=== PATIENT | female | born 1935 | race Caucasian/White ===

== ENCOUNTER 2019-01-22 06:05 | Emergency (ER) | payer MEDICARE, BC ==
[2019-01-22 06:16] VITALS: RESP 18
[2019-01-22] MEDS ORDERED: INDOMETHACIN 25 MG CAP PO STA (07:09)
--- NOTE | 2019-01-22 07:11 | ED ---
General Adult HPI - General Chief complaint: Extremity Problem,Nontraumatic Stated complaint: leg pain Time Seen by Provider: 01/22/19 07:00 Source: patient, family Mode of arrival: wheelchair Limitations: no limitations - History of Present Illness Initial comments: Dictation was produced using [employer] dictation software. please excuse any grammatical, word or spelling errors. Chief Complaint: 83-year-old female with past medical history of hypertension presents with left metatarsal pain. History of Present Illness: 83-year-old female she presents today with left metatarsal pain. Patient's past medical history of hypertension. Yesterday patient noted that she was having significant warmth redness and pain to the left metatarsal. It began acutely yesterday. Patient states that pain is severe especially when she walks. Patient was concerned that she has gout. Patient belongs to alcohol clubs and drinks alcohol frequently. She denies ever having had symptoms like this before. Patient denies any constitutional symptoms. She reports not eating seafood or red meats very often. She tried to make an appointment with her primary care physician or was unable to do so. The ROS documented in this emergency department record has been reviewed and confirmed by me. Those systems with pertinent positive or negative responses have been documented in the HPI. All other systems are other negative and/or no ncontributory. PHYSICAL EXAM: General Impression: Alert and oriented x3, not in acute distress HEENT: Normocephalic atraumatic, extra-ocular movements intact, pupils equal and reactive to light bilaterally, mucous membranes moist. Cardiovascular: Heart regular rate and rhythm, S1&S2 audible, no murmurs, rubs or gallops Chest: Lungs clear to auscultation bilaterally, no rhonchi, no wheeze, no rales Abdomen: Bowel sounds present, abdomen soft, non-tender, non-distended, no organomegaly Musculoskeletal: Pulses present and equal in all extremities, no peripheral edema Motor: no focal deficits noted Neurological: CN II-XII grossly intact, no focal motor or sensory deficits noted Skin: Intact with no visualized rashes Psych: Normal affect and mood Left foot: Redness and warmth and erythema to the left MTP joint ED course: 83-year-old female clinical presentation consistent with gout. Vital signs upon arrival shows blood pressure 187/85, rest of vital signs within acceptable limits. Patient given indomethacin. At this point there is no concern for infectious cause at this time given that no skin injuries. Patient is well-appearing denies any constitutional symptoms. Patient is counseled on precipitants to gouty arthritis. laboratory evaluation was ordered by previous physician Dr. Claros.Laboratory evaluation shows CBC without any abnormalities. Metabolic panel shows an is within acceptable limits. CRP is elevated 19.8. Patient is notified of these results. She is told to follow-up with her primary care physician regarding elevated CRP. Patient is told that her symptoms may reflect an acute infectious process though highly unlikely. She is understandable and agreeable to plan disposition. Patient given prescription for indomethacin. - Related Data Home Medications Medication Instructions Recorded Confirmed ALPRAZolam 0.25 mg PO TID PRN 03/03/15 01/22/19 Levothyroxine Sodium [Synthroid] 75 mcg PO QAM 03/03/15 01/22/19 Temazepam 15 mg PO HS PRN 03/03/15 01/22/19 Aspirin EC [Ecotrin] 162.5 mg PO DAILY PRN 01/22/19 01/22/19 Atorvastatin [Lipitor] 10 mg PO HS 01/22/19 01/22/19 Brimonidine Tartrate/Timolol 1 drop BOTH EYES BID 01/22/19 01/22/19 [Combigan 0.2%-0.5% Eye Drops] Enalapril [Vasotec] 5 mg PO DAILY 01/22/19 01/22/19 Fluticasone Nasal [place] [Flonase 1 spr EA NOSTRIL DAILY 01/22/19 01/22/19 Nasal [place]] Previous Rx's Medication Instructions Recorded Indomethacin [Indocin] 50 mg PO TID 5 Days #15 capsule 01/22/19 Allergies Allergy/AdvReac Type Severity Reaction Status Date / Time Penicillins Allergy Unknown Verified 01/22/19 07:06 Childhood sulfamethoxazole Allergy Nausea Verified 01/22/19 07:06 [From [facility]ra] trimethoprim [From Marra] Allergy Nausea Verified 01/22/19 07:06 Review of Systems ROS Statement: Those systems with pertinent positive or pertinent negative responses have been documented in the HPI. ROS Other: All systems not noted in ROS Statement are negative. Past Medical History History of Any Multi-Drug Resistant Organisms: None Reported Additional Past Surgical History / Comment(s): 03-04-15 ORIF LT WRIST BILATERAL BLEPHROPLASY. BREAST BX-NEG. Past Psychological History: Anxiety, Depression Smoking Status: Former smoker Past Alcohol Use History: Occasional Past Drug Use History: None Reported General Exam Limitations: no limitations Course Vital Signs 01/22/19 06:09 Temperature 97.5 F L Pulse Rate 95 Respiratory 18 Rate Blood Pressure 187/85 O2 Sat by Pulse 96 Oximetry Medical Decision Making - Lab Data Result diagrams: 01/22/19 07:00 01/22/19 07:00 Lab Results 01/22/19 01/22/19 Range/Units 07:00 07:00 WBC 9.2 (3.8-10.6) k/uL RBC 3.89 (3.80-5.40) m/uL Hgb 11.6 (11.4-16.0) gm/dL Hct 34.6 (34.0-46.0) % MCV 89.0 (80.0-100.0) fL MCH 29.8 (25.0-35.0) pg MCHC 33.5 (31.0-37.0) g/dL RDW 12.7 (11.5-15.5) % Plt Count 201 (150-450) k/uL Neutrophils % 69 % Lymphocytes % 22 % Monocytes % 5 % Eosinophils % 2 % Basophils % 0 % Neutrophils # 6.3 (1.3-7.7) k/uL Lymphocytes # 2.0 (1.0-4.8) k/uL Monocytes # 0.4 (0-1.0) k/uL Eosinophils # 0.2 (0-0.7) k/uL Basophils # 0.0 (0-0.2) k/uL Sodium 142 (137-145) mmol/L Potassium 4.1 (3.5-5.1) mmol/L Chloride 108 H (98-107) mmol/L Carbon Dioxide 25 (22-30) mmol/L Anion Gap 9 mmol/L BUN 18 H (7-17) mg/dL Creatinine 0.81 (0.52-1.04) mg/dL Est GFR (CKD-EPI)AfAm 79 (>60 ml/min/1.73 sqM) Est GFR (CKD-EPI)NonAf 69 (>60 ml/min/1.73 sqM) Glucose 102 H (74-99) mg/dL Uric Acid 7.2 (3.7-7.4) mg/dL Calcium 9.2 (8.4-10.2) mg/dL Total Bilirubin 0.7 (0.2-1.3) mg/dL AST 26 (14-36) U/L ALT 17 (9-52) U/L Alkaline Phosphatase 135 H (38-126) U/L C-Reactive Protein 19.8 H (<10.0) mg/L Total Protein 7.0 (6.3-8.2) g/dL Albumin 4.1 (3.5-5.0) g/dL Disposition Clinical Impression: Joint pain Disposition: HOME SELF-CARE Condition: Good Instructions (If sedation given, give patient instructions): Gout (ED) Prescriptions: Indomethacin [Indocin] 50 mg PO TID 5 Days #15 capsule Is patient prescribed a controlled substance at d/c from ED?: No Referrals: Donnie Szymanski MD [Primary Care Provider] - 1-2 days Time of Disposition: 07:29
[2019-01-22 07:14] LABS: Basophils % (A) 0 %; Eosinophils # (A) 0.2 k/uL (0-0.7); Eosinophils % (A) 2 %; HCT 34.6 % (34.0-46.0); HGB 11.6 gm/dL (11.4-16.0); Lymphocytes % (A) 22 %; MCH 29.8 pg (25.0-35.0); MCHC 33.5 g/dL (31.0-37.0); Mean Platelet Volume 7.4; Monocytes # (A) 0.4 k/uL (0-1.0); Monocytes % (A) 5 %; Neutrophils # (A) 6.3 k/uL (1.3-7.7); Neutrophils % (A) 69 %; Platelet Count 201 k/uL (150-450); RBC 3.89 m/uL (3.80-5.40); RDW 12.7 % (11.5-15.5); WBC 9.2 k/uL (3.8-10.6)
[2019-01-22 07:21] LABS: Albumin 4.1 g/dL (3.5-5.0); C Reactive Protein 19.8 mg/L (<10.0); Calcium 9.2 mg/dL (8.4-10.2); Potassium 4.1 mmol/L (3.5-5.1); Total Bilirubin 0.7 mg/dL (0.2-1.3); Uric Acid 7.2 mg/dL (3.7-7.4)
[2019-01-22 08:18] VITALS: BP 161/83; PULSE 82; TEMP 97.2
== END 2019-01-22 08:15 | disposition home or self-care (01) ==
LOC: EC 06:05
DX: M25.572 Pain in left ankle and joints of left foot (principal); R79.82 Elevated C-reactive protein (CRP); I10 Essential (primary) hypertension; Z87.891 Personal history of nicotine dependence; Z98.890 Other specified postprocedural states; Z79.82 Long term (current) use of aspirin; Z79.890 Hormone replacement therapy; Z79.899 Other long term (current) drug therapy; Z88.0 Allergy status to penicillin; Z88.1 Allergy status to other antibiotic agents; Z88.2 Allergy status to sulfonamides
CPT/HCPCS: 36415; 80053; 84550; 85025; 86140; 99283

== ENCOUNTER → 2019-08-28 | Outpatient (CLI) | payer MEDICARE, BC ==
[2019-08-28 16:01] LABS: Basophils % (A) 1 %; Eosinophils # (A) 0.2 k/uL (0-0.7); Eosinophils % (A) 3 %; HCT 36.8 % (34.0-46.0); HGB 11.9 gm/dL (11.4-16.0); Lymphocytes # (A) 3.1 k/uL (1.0-4.8); Lymphocytes % (A) 40 %; MCH 28.9 pg (25.0-35.0); MCHC 32.3 g/dL (31.0-37.0); MCV 89.6 fL (80.0-100.0); Mean Platelet Volume 8.1; Monocytes # (A) 0.3 k/uL (0-1.0); Monocytes % (A) 4 %; Neutrophils # (A) 3.9 k/uL (1.3-7.7); Neutrophils % (A) 50 %; Platelet Count 250 k/uL (150-450); RBC 4.11 m/uL (3.80-5.40); RDW 12.3 % (11.5-15.5); WBC 7.7 k/uL (3.8-10.6)
[2019-08-28 16:45] LABS: Erythrocyte Sedimentation Rate 13 mm/hr (0-20)
[2019-08-29 01:54] LABS: C Reactive Protein <0.4 mg/dL (0.0-0.8)
[2019-08-29 04:21] LABS: Toxoplasma Antibody (IgG) <3.0 IU/mL (<7.2); Toxoplasma Antibody (IgM) <3.0 AU/mL (<8.0)
[2019-08-29 06:34] LABS: Anti-DNA, DS unit <1.0 IU/mL; Anti-Smith Ab Interp NEGATIVE (NEGATIVE); DNA Double-Stranded NEGATIVE (NEGATIVE)
[2019-08-29 09:18] LABS: Angiotensin-1 Converting Enz. 8 U/L (8-52)
[2019-08-29 11:19] LABS: HLA B27 NEGATIVE
[2019-08-29 13:52] LABS: Smooth Muscle Antibody 76 UNITS (<20)
[2019-09-04 16:37] LABS: Lysozyme, Serum or Body Fluid 7.9 mcg/mL (5.0-11.0)
== END | disposition home or self-care (01) ==
LOC: LABWHC1 15:02
PROVIDERS: ATTEND Ophthalmology
DX: H20.019 Primary iridocyclitis, unspecified eye (principal); H46.9 Unspecified optic neuritis
CPT/HCPCS: 36415; 82164; 83516; 85025; 85549; 85652; 86038; 86140; 86225; 86235; 86480; 86618; 86777; 86778; 86780; 86812

== ENCOUNTER → 2023-04-20 | Outpatient (CLI) | payer MEDICARE, BC ==
--- NOTE | 2023-04-20 09:35 | US ---
EXAMINATION TYPE: US liver DATE OF EXAM: 04/20/2023 COMPARISON: NONE CLINICAL INDICATION: Female, 87 years old with history of R94.5 ABNORMAL LIVER FUNCTION STUDIES; TECHNIQUE: Multiple sonographic images of the right upper quadrant are obtained. FINDINGS: EXAM MEASUREMENTS: Liver Length: 13.8 cm Gallbladder Wall: 0.16 cm Right Kidney: 8.0 x 3.3 x 3.5 cm TREASURY MANAGER NOTES: Pancreas: Tail obscured by overlying bowel gas Liver: wnl Gallbladder: Echogenic foci with shadowing measuring 0.75 cm Evidence for sonographic Barreto's sign: no Right Kidney: Small, cystic area measuring 0.5 x 0.5 x 0.4 cm IMPRESSION: Uncomplicated cholelithiasis.
== END | disposition home or self-care (01) ==
LOC: RADUSWWP 08:45
PROVIDERS: ATTEND Internal Medicine
DX: K80.20 Calculus of gallbladder without cholecystitis without obstruction (principal); R94.5 Abnormal results of liver function studies
CPT/HCPCS: 76705

== ENCOUNTER → 2023-11-15 | Outpatient (CLI) | payer MEDICARE, BC ==
[2023-11-15 18:51] LABS: Basophils # (A) 0.08 X 10*3/uL (0.00-0.10); Basophils % (A) 1.5 %; Eosinophils # (A) 0.13 X 10*3/uL (0.04-0.35); Eosinophils % (A) 2.5 %; HCT 33.5 % (37.2-46.3); HGB 10.9 g/dL (12.0-15.0); Lymphocytes # (A) 2.55 X 10*3/uL (0.90-5.00); Lymphocytes % (A) 48.7 %; MCH 30.4 pg (27.0-32.0); MCHC 32.5 g/dL (32.0-37.0); MCV 93.6 FL (80.0-97.0); Mean Platelet Volume 11.7 FL (9.5-12.2); Monocytes # (A) 0.54 X 10*3/uL (0.20-1.00); Monocytes % (A) 10.3 %; NRBC Per 100 WBC 0 X 10*3/uL (0.00-0.01); Neutrophils # (A) 1.93 X 10*3/uL (1.80-7.70); Neutrophils % (A) 36.8 %; Platelet Count 195 X 10*3/uL (140-440); RBC 3.58 X 10*6/uL (4.10-5.20); RDW 12.4 % (11.5-14.5); WBC 5.24 X 10*3/uL (4.50-10.00)
[2023-11-15 19:32] LABS: % Iron Saturation 44.93 (12.00-45.00); ALT 88 U/L (8-44); AST 55 U/L (13-35); Albumin 4.3 g/dL (3.8-4.9); Albumin/Globulin Ratio 2.15 Ratio (1.60-3.17); Alkaline Phosphatase 309 U/L (41-126); BUN/Creat Ratio 18.62 Ratio (12.00-20.00); Blood Urea Nitrogen 14.9 mg/dL (9.0-27.0); Calcium 9.3 mg/dL (8.7-10.3); Carbon Dioxide 21.9 mmol/L (21.6-31.8); Chloride 103 mmol/L (96-109); Glucose 98 mg/dL (70-110); Iron 124 UG/DL (50-170); Potassium 4.5 mmol/L (3.5-5.5); Sodium 138 mmol/L (135-145); Total Bilirubin 0.5 mg/dL (0.3-1.2); Total Iron Binding Capacity 276 UG/DL (228-460); Total Protein 6.3 g/dL (6.2-8.2)
[2023-11-15 21:41] LABS: Protein, Total 6.4 g/dL (6.2-8.2)
[2023-11-15 22:57] LABS: Ceruloplasmin 26.1 mg/dL (20.0-60.0)
[2023-11-16 17:18] LABS: Albumin 4.03 g/dL (3.80-4.90); Gamma Globulin 0.74 g/dL (0.70-1.50)
== END | disposition home or self-care (01) ==
LOC: LABWHC1 12:19
PROVIDERS: ATTEND Internal Medicine Gastroenterology
DX: R74.01 Elevation of levels of liver transaminase levels (principal)
CPT/HCPCS: 36415; 80053; 81596; 82103; 82390; 82728; 83516; 83540; 83550; 84165; 85025; 86038

== ENCOUNTER → 2024-06-18 | Outpatient (CLI) | payer MEDICARE, BC ==
--- NOTE | 2024-06-18 11:02 | US ---
EXAMINATION TYPE: US liver DATE OF EXAM: 06/18/2024 COMPARISON: US(04/20/2023) CLINICAL INDICATION: Female, 88 years old with history of R74.01 ELEVATION OF LEVELS OF LIVER TRANSAM INASE L; TECHNIQUE: Grayscale and color Doppler imaging of the right upper quadrant. FINDINGS: EXAM MEASUREMENTS: Liver Length: 14.7 cm Gallbladder Wall: 0.2 cm CBD: 0.4 cm, color Doppler imaging was utilized to isolate the common bile duct for measurement. Right Kidney: 9.1x3.1x4.4 cm ACQUISITION MANAGER NOTES: Pancreas: Tail obscured by overlying bowel gas Liver: No abnormalities seen Gallbladder: Echogenic foci seen: 0.6cm, ?Enlarged: 11.7cm Evidence for sonographic Barreto's sign: No CBD: wnl Right Kidney: Anechoic area seen (mid): 0.6x0.5x0.6cm IMPRESSION: 1. No evidence for acute process. 2. Cholelithiasis. [facility], , 06/18/2024 11:00 AM
[2024-06-18 14:58] LABS: Basophils # (A) 0.06 X 10*3/uL (0.00-0.10); Eosinophils % (A) 6.7 %; HCT 33.5 % (37.2-46.3); HGB 11.1 g/dL (12.0-15.0); Lymphocytes # (A) 2.05 X 10*3/uL (0.90-5.00); Lymphocytes % (A) 34.2 %; MCH 32.1 pg (27.0-32.0); MCHC 33.1 g/dL (32.0-37.0); MCV 96.8 FL (80.0-97.0); Mean Platelet Volume 12.3 FL (9.5-12.2); Monocytes # (A) 0.59 X 10*3/uL (0.20-1.00); Monocytes % (A) 9.8 %; NRBC Per 100 WBC 0 X 10*3/uL (0.00-0.01); Neutrophils # (A) 2.87 X 10*3/uL (1.80-7.70); Neutrophils % (A) 47.8 %; Platelet Count 198 X 10*3/uL (140-440); RBC 3.46 X 10*6/uL (4.10-5.20); RDW 12.5 % (11.5-14.5)
[2024-06-18 15:43] LABS: ALT 92 U/L (8-44); AST 125 U/L (13-35); Alkaline Phosphatase 510 U/L (41-126); Blood Urea Nitrogen 17.7 mg/dL (9.0-27.0); Calcium 9.5 mg/dL (8.7-10.3); Carbon Dioxide 24.5 mmol/L (21.6-31.8); Chloride 105 mmol/L (96-109); Globulin 2.1 g/dL (1.6-3.3); Glucose 93 mg/dL (70-110); Potassium 3.7 mmol/L (3.5-5.5); Sodium 141 mmol/L (135-145); Total Bilirubin 3.1 mg/dL (0.3-1.2); Total Protein 6.1 g/dL (6.2-8.2)
== END | disposition home or self-care (01) ==
LOC: RADUSWWP 09:08
PROVIDERS: ATTEND Internal Medicine Gastroenterology
DX: R74.01 Elevation of levels of liver transaminase levels (principal); K80.20 Calculus of gallbladder without cholecystitis without obstruction
CPT/HCPCS: 76705; 80053; 82105; 85025